=== PATIENT | male | born 1995 | race Caucasian/White ===

== ENCOUNTER 2019-05-22 08:46 | Emergency (ER) | payer OTHER ==
[~2019-05-22] VITALS: Ht 167.6 cm; Wt 75.0 kg
[2019-05-22 08:51] VITALS: BP 131/73
[2019-05-22] MEDS ORDERED: ZOFRAN ODT4 MG PO (09:17)
[2019-05-22 09:48] VITALS: PULSE 103; TEMP 97.8
== END 2019-05-22 09:48 | disposition home or self-care (01) ==
LOC: COL.ER 08:46
DX: R11.10 Vomiting, unspecified (principal)